=== PATIENT | female | born 2000 | race Two or more races ===

== ENCOUNTER 2022-11-25 11:53 | Observation (INO) | payer MEDICAID ==
[2022-11-25 13:11] LABS: Basophils # (auto) 0 10 ^3/uL (0-0.2); Basophils % (auto) 0.4 % (0.0-2.0); Eosinophils # (auto) 0.1 10 ^3/uL (0-0.8); Hematocrit 34.9 % (36.0-46.0); Hemoglobin 11.7 g/dL (12.2-16.2); Lymphocytes # (auto) 1.5 10 ^3/uL (0.4-5.4); Lymphocytes % (auto) 19.5 % (10.0-50.0); Mean Corpuscular Hemoglobin 29.5 pg (28.0-32.0); Mean Corpuscular Hgb Conc. 33.6 g/dL (32.0-36.0); Mean Corpuscular Volume 87.9 fL (80.0-100.0); Monocytes # (auto) 0.4 10 ^3/uL (0-1.3); Monocytes % (auto) 4.9 % (0.0-12.0); Neutrophils # (auto) 5.7 10 ^3/uL (1.6-8.6); Neutrophils % (auto) 74.2 % (37.0-80.0); Nucleated Red Blood Cells % 0.1 %; Red Blood Cells 3.98 10^6/uL (4.0-5.20); Red Cell Distribution Width 13.7 % (11.8-14.3); White Blood Cell 7.7 10^3/uL (4.4-10.8)
[2022-11-25 13:29] LABS: Protein, Urine 42.9 mg/dL (0.0-11.9)
[2022-11-25 13:29] LABS: Albumin 2.5 g/dL (3.4-5.0); Calcium 8.4 mg/dL (8.5-10.1); Potassium 3.5 mmol/L (3.5-5.1)
[2022-11-25 13:32] LABS: INR 0.97 (0.9-1.15); Partial Thromboplastin Time 24.6 sec (24.6-33.4)
[2022-11-25 13:34] LABS: Bilirubin, Total 0.2 mg/dL (0.2-1.0); Total Protein 6.3 g/dL (6.4-8.2); Uric Acid 3.5 mg/dL (2.6-6.0)
[2022-11-25] MEDS ORDERED: PREN-96 PO (13:53)
[2022-11-25 14:46] LABS: Urine Bacteria NONE SEEN /hpf (None Seen); Urine Blood Negative /uL (Negative); Urine Hyaline Cast FEW /lpf (0 - 2); Urine Mucus FEW (None Seen); Urine Specific Gravity 1.024 (1.001-1.035); Urine WBC 4 /hpf (0 - 5)
== END 2022-11-25 14:05 | disposition home or self-care (01) ==
LOC: UNDOADMOB 11:53 → LDRP 11:53 → UNDODISOB 14:05
PROVIDERS: ADMIT Obstetrics & Gynecology; ATTEND Obstetrics & Gynecology
DX: O13.3 Gestational [pregnancy-induced] hypertension without significant proteinuria, third trimester (principal); O62.9 Abnormality of forces of labor, unspecified; O26.893 Other specified pregnancy related conditions, third trimester; R51.9 Headache, unspecified; Z3A.34 34 weeks gestation of pregnancy
CPT/HCPCS: 36415; 59025; 80053; 81001; 81002; 82570; 84156; 84550; 85025; 85610; 85730; 94760; G0378

== ENCOUNTER 2022-12-04 08:10 | Observation (INO) | payer MEDICAID ==
[~2022-12-04 08:10] MED LIST: PREN-96 PO
== END 2022-12-04 10:33 | disposition home or self-care (01) ==
LOC: UNDOADMOB 08:10 → LDRP 08:10 → UNDODISOB 10:33
PROVIDERS: ADMIT Obstetrics & Gynecology; ATTEND Obstetrics & Gynecology
DX: O60.03 Preterm labor without delivery, third trimester (principal); O13.3 Gestational [pregnancy-induced] hypertension without significant proteinuria, third trimester; Z3A.36 36 weeks gestation of pregnancy
CPT/HCPCS: 59025; 81002; 94760; G0378

== ENCOUNTER 2022-12-07 14:34 | Observation (INO) | payer MEDICAID ==
[~2022-12-07] VITALS: Ht 154.9 cm; Wt 86.2 kg
[2022-12-07] MEDS ORDERED: LACTATED RINGER'S 1,000 ML IV ONE (15:30)
[2022-12-07] MEDS ORDERED: LACTATED RINGER'S 1,000 ML IV SCH (15:30)
[2022-12-07 16:05] LABS: Basophils # (auto) 0 10 ^3/uL (0-0.2); Basophils % (auto) 0.4 % (0.0-2.0); Eosinophils # (auto) 0.1 10 ^3/uL (0-0.8); Eosinophils % (auto) 0.7 % (0.0-7.0); Hematocrit 36.9 % (36.0-46.0); Hemoglobin 12.3 g/dL (12.2-16.2); Lymphocytes # (auto) 1.5 10 ^3/uL (0.4-5.4); Lymphocytes % (auto) 15.7 % (10.0-50.0); Mean Corpuscular Hemoglobin 28.4 pg (28.0-32.0); Mean Corpuscular Hgb Conc. 33.3 g/dL (32.0-36.0); Mean Corpuscular Volume 85.4 fL (80.0-100.0); Monocytes # (auto) 0.6 10 ^3/uL (0-1.3); Monocytes % (auto) 6.6 % (0.0-12.0); Neutrophils # (auto) 7.3 10 ^3/uL (1.6-8.6); Neutrophils % (auto) 76.6 % (37.0-80.0); Red Blood Cells 4.32 10^6/uL (4.0-5.20); White Blood Cell 9.5 10^3/uL (4.4-10.8)
[2022-12-07 16:14] LABS: Urine Bacteria MOD /hpf (None Seen); Urine Blood Negative /uL (Negative); Urine Budding Yeast OCCASIONAL /hpf (None Seen); Urine Mucus FEW (None Seen); Urine Specific Gravity 1.013 (1.001-1.035); Urine WBC 5 /hpf (0 - 5)
[2022-12-07] MEDS: TERBUTALINE SULFATE 1 MG/ML 1ML VIAL SC SCH ×3 (16:18→17:11)
[2022-12-07 16:21] LABS: Albumin 2.5 g/dL (3.4-5.0); Calcium 8.6 mg/dL (8.5-10.1); Potassium 4.1 mmol/L (3.5-5.1)
[2022-12-07 16:23] LABS: Protein, Urine 42.7 mg/dL (0.0-11.9)
[2022-12-07 16:27] LABS: BUN/Creatinine Ratio 18.9; Bilirubin, Total 0.3 mg/dL (0.2-1.0); Total Protein 6.7 g/dL (6.4-8.2); Uric Acid 4.3 mg/dL (2.6-6.0)
[2022-12-07 16:32] LABS: INR 0.91 (0.9-1.15); Partial Thromboplastin Time 24.6 sec (24.6-33.4)
[2022-12-07] MEDS ORDERED: NIFEdipine 10 MG CAP PO ONE (17:15)
[2022-12-07] MEDS ORDERED: NIFE1TAB31 PO ×2 (18:55→18:56)
== END 2022-12-07 19:29 | disposition home or self-care (01) ==
LOC: LDRP 14:34
PROVIDERS: ADMIT Obstetrics & Gynecology; ATTEND Obstetrics & Gynecology
DX: O60.03 Preterm labor without delivery, third trimester (principal); Z20.822 Contact with and (suspected) exposure to COVID-19; O62.9 Abnormality of forces of labor, unspecified; O26.893 Other specified pregnancy related conditions, third trimester; N89.8 Other specified noninflammatory disorders of vagina; O13.3 Gestational [pregnancy-induced] hypertension without significant proteinuria, third trimester; Z3A.36 36 weeks gestation of pregnancy; Z79.899 Other long term (current) drug therapy; Z98.890 Other specified postprocedural states; Z98.891 History of uterine scar from previous surgery
CPT/HCPCS: 36415; 59025; 80053; 81001; 81002; 82570; 84156; 84550; 85025; 85610; 85730; 87426; 96360; 96361; 96372; G0378; J3105

== ENCOUNTER 2022-12-09 08:00 | Observation (INO) | payer MEDICAID ==
[~2022-12-09] VITALS: Ht 154.9 cm; Wt 86.2 kg
[~2022-12-09 08:00] MED LIST changes: +NIFE1TAB31 PO
[2022-12-09 09:25] LABS: Urine Bacteria FEW /hpf (None Seen); Urine Blood Negative /uL (Negative); Urine Specific Gravity 1.018 (1.001-1.035); Urine WBC 3 /hpf (0 - 5)
[2022-12-09 09:37] LABS: Protein, Urine 39.7 mg/dL (0.0-11.9)
[2022-12-09 10:28] LABS: Protein, Urine 19.6 mg/dL (0.0-11.9)
[2022-12-09 11:13] LABS: 24 Hr. Total Protein, Urine 333.2 mg/24 Hr (<149.1)
== END 2022-12-09 11:54 | disposition home or self-care (01) ==
LOC: LDRP 08:00
PROVIDERS: ADMIT Obstetrics & Gynecology; ATTEND Obstetrics & Gynecology
DX: O13.3 Gestational [pregnancy-induced] hypertension without significant proteinuria, third trimester (principal); O62.9 Abnormality of forces of labor, unspecified; O26.893 Other specified pregnancy related conditions, third trimester; R51.9 Headache, unspecified; O99.891 Other specified diseases and conditions complicating pregnancy; M79.604 Pain in right leg; O12.03 Gestational edema, third trimester; Z3A.37 37 weeks gestation of pregnancy
CPT/HCPCS: 36415; 59025; 81001; 81002; 82570; 84156; 84550; G0378

== ENCOUNTER 2022-12-11 13:33 | Observation (INO) | payer MEDICAID | END 2022-12-12 10:46 | disposition home or self-care (01) | LOC: UNDOADMOB 12-12 08:41 → LDRP 12-12 08:41 | PROVIDERS: ADMIT Obstetrics & Gynecology; ATTEND Obstetrics & Gynecology | DX: O13.3 Gestational [pregnancy-induced] hypertension without significant proteinuria, third trimester (principal); O62.9 Abnormality of forces of labor, unspecified; Z3A.37 37 weeks gestation of pregnancy | CPT/HCPCS: 59025; 81002; G0378 ==

== ENCOUNTER 2022-12-14 04:35 | Inpatient (IN) | payer MEDICAID ==
[2022-12-13 08:06] LABS: Urine Bacteria MANY /hpf (None Seen); Urine Blood Negative /uL (Negative); Urine Mucus FEW (None Seen); Urine Specific Gravity 1.021 (1.001-1.035); Urine WBC 6 /hpf (0 - 5)
[2022-12-13 08:11] LABS: Basophils # (auto) 0 10 ^3/uL (0-0.2); Basophils % (auto) 0.3 % (0.0-2.0); Eosinophils # (auto) 0.1 10 ^3/uL (0-0.8); Hematocrit 33.5 % (36.0-46.0); Hemoglobin 11.1 g/dL (12.2-16.2); Lymphocytes # (auto) 1.6 10 ^3/uL (0.4-5.4); Lymphocytes % (auto) 21.3 % (10.0-50.0); Mean Corpuscular Hemoglobin 28.6 pg (28.0-32.0); Mean Corpuscular Hgb Conc. 33.2 g/dL (32.0-36.0); Mean Corpuscular Volume 86.1 fL (80.0-100.0); Monocytes # (auto) 0.5 10 ^3/uL (0-1.3); Monocytes % (auto) 7.1 % (0.0-12.0); Neutrophils # (auto) 5.1 10 ^3/uL (1.6-8.6); Neutrophils % (auto) 69.3 % (37.0-80.0); Red Blood Cells 3.89 10^6/uL (4.0-5.20); White Blood Cell 7.4 10^3/uL (4.4-10.8)
[2022-12-13 08:13] LABS: INR 0.9 (0.9-1.15); Partial Thromboplastin Time 26.1 sec (24.6-33.4)
[2022-12-13 08:35] LABS: Albumin 2.5 g/dL (3.4-5.0); Calcium 8.3 mg/dL (8.5-10.1)
[2022-12-13 08:37] LABS: BUN/Creatinine Ratio 22.2; Bilirubin, Total 0.2 mg/dL (0.2-1.0); Total Protein 6.3 g/dL (6.4-8.2)
[2022-12-13 08:38] LABS: Alcohol, Urine < 3.0 mg/dL (0-10); Amphetamine Screen, Urine NEGATIVE (NEGATIVE); Barbiturate Scree,Urine NEGATIVE (NEGATIVE); Benzodiazephine Screen, Urine NEGATIVE (NEGATIVE); Cannabinoid Screen, Urine NEGATIVE (NEGATIVE); Cocaine Screen, Urine NEGATIVE (NEGATIVE); Opiate Scree,Urine NEGATIVE (NEGATIVE); Phencyclidine Screen, Urine NEGATIVE (NEGATIVE)
[2022-12-14] VITALS (19 sets, daily range): BP systolic 104–132; BP diastolic 62–85
[~2022-12-14] VITALS: Ht 154.9 cm; Wt 89.8 kg
[2022-12-14] MEDS ORDERED: LACTATED RINGER'S 1,000 ML IV ONE (04:45)
[2022-12-14] MEDS ORDERED: ceFAZolin 1GM/50ML 50 ML IV ONE (04:45)
[2022-12-14 05:07] LABS: RPR Non Reactive (Non Reactive)
[2022-12-14] MEDS: LACTATED RINGER'S 1,000 ML IV SCH ×2 (05:37→14:05)
[2022-12-14] MEDS ORDERED: MORPHINE SULF PF 5 MG/10 ML VIAL ONE (06:39)
[2022-12-14] MEDS ORDERED: fentaNYL CITRATE 100 MCG/2 ML VL ONE (06:39)
[2022-12-14] MEDS ORDERED: ONDANSETRON HCL 4 MG/2 ML VIAL ONE (06:40)
[2022-12-14] MEDS ORDERED: DexAMETHasone SOD PHOS 10MG/1ML VIAL INJ ONE (06:40)
[2022-12-14] MEDS ORDERED: oxyTOCIN 10 UNIT/ML 10ML VIAL ONE (06:40)
[2022-12-14] MEDS ORDERED: CARBOPROST TROMETHAMINE 250 MCG/1ML VIAL IM ONE (07:50)
[2022-12-14] MEDS ORDERED: IBUP800T27 PO (08:07)
[2022-12-14] MEDS ORDERED: DOCU-94 PO (08:07)
[2022-12-14] MEDS ORDERED: HYDR-4902 PO (08:07)
[2022-12-14] MEDS ORDERED: ceFAZolin 1GM/50ML 50 ML IV SCH (08:15)
[2022-12-14] MEDS ORDERED: LACT. RINGERS/OXYTOCIN 20UNITS 1,000 ML IV ONE (08:15)
[2022-12-14] MEDS ORDERED: GUM (CHEWING) 1 GUM CHEW CHEW ONE (08:15)
[2022-12-14] MEDS ORDERED: ONDANSETRON HCL 4 MG/2 ML VIAL IV PRN ×2 (08:15→10:00)
[2022-12-14] MEDS ORDERED: NALBUPHINE HCL 10 MG/1ml INJECTION IV ONE (10:00)
[2022-12-14] MEDS ORDERED: NALOXONE HCL 0.4 MG/ML VIAL IV PRN (10:00)
[2022-12-14] MEDS ORDERED: HYDROmorphone HCL 2 MG/ML VL/or syr IV PRN (10:00)
[2022-12-14] MEDS ORDERED: diphenhdrAMINE HCL 50 MG/1 ML VL IV PRN (10:00)
[2022-12-14] MEDS: ACETAMINOPHEN IV 1000 MG/100ML (10MG/ML) IV PRN ×2 (13:03→20:53)
[2022-12-14] MEDS: ceFAZolin 1GM/50ML 50 ML IV SCH ×2 (15:21→23:52)
[2022-12-14 22:44] LABS: Basophils # (auto) 0 10 ^3/uL (0-0.2); Basophils % (auto) 0.1 % (0.0-2.0); Eosinophils # (auto) 0 10 ^3/uL (0-0.8); Hematocrit 30.8 % (36.0-46.0); Hemoglobin 10.3 g/dL (12.2-16.2); Lymphocytes # (auto) 1.3 10 ^3/uL (0.4-5.4); Lymphocytes % (auto) 9.9 % (10.0-50.0); Mean Corpuscular Hemoglobin 28.5 pg (28.0-32.0); Mean Corpuscular Hgb Conc. 33.3 g/dL (32.0-36.0); Mean Corpuscular Volume 85.7 fL (80.0-100.0); Monocytes % (auto) 7.4 % (0.0-12.0); Neutrophils % (auto) 82.6 % (37.0-80.0); White Blood Cell 13.4 10^3/uL (4.4-10.8)
[2022-12-15] VITALS (13 sets, daily range): BP systolic 93–130; BP diastolic 53–86
[2022-12-15] MEDS: LACTATED RINGER'S 1,000 ML IV SCH (03:45)
[2022-12-15] MEDS: ACETAMINOPHEN IV 1000 MG/100ML (10MG/ML) IV PRN (04:58)
[2022-12-15] MEDS ORDERED: HYDROcodone-ACET 5/325MG TAB PO PRN (07:30)
[2022-12-15] MEDS: ceFAZolin 1GM/50ML 50 ML IV SCH (07:31)
[2022-12-15] MEDS: HYDROcodone-ACET 5/325MG TAB PO PRN ×3 (07:57→21:35)
[2022-12-15] MEDS: SIMETHICONE 80 MG CHEWABLE TABLET PO SCH ×3 (07:58→21:35)
[2022-12-15 08:14] LABS: Basophils # (auto) 0.1 10 ^3/uL (0-0.2); Basophils % (auto) 0.8 % (0.0-2.0); Eosinophils # (auto) 0 10 ^3/uL (0-0.8); Eosinophils % (auto) 0.3 % (0.0-7.0); Hematocrit 29.1 % (36.0-46.0); Hemoglobin 9.9 g/dL (12.2-16.2); Lymphocytes # (auto) 2.1 10 ^3/uL (0.4-5.4); Lymphocytes % (auto) 18.8 % (10.0-50.0); Mean Corpuscular Hemoglobin 28.9 pg (28.0-32.0); Mean Corpuscular Volume 85.1 fL (80.0-100.0); Monocytes # (auto) 0.9 10 ^3/uL (0-1.3); Monocytes % (auto) 8.2 % (0.0-12.0); Neutrophils # (auto) 7.9 10 ^3/uL (1.6-8.6); Neutrophils % (auto) 71.9 % (37.0-80.0); Red Blood Cells 3.42 10^6/uL (4.0-5.20); Red Cell Distribution Width 14.1 % (11.8-14.3)
[2022-12-15] MEDS: IBUPROFEN 800 MG TAB PO PRN ×2 (11:56→23:20)
[2022-12-15] MEDS: DOCUSATE SOD 100 MG CAP PO SCH ×2 (11:56→21:35)
[2022-12-16 03:00] VITALS: BP 93/55
[2022-12-16] MEDS: HYDROcodone-ACET 5/325MG TAB PO PRN ×2 (05:23→16:41)
[2022-12-16] MEDS: SIMETHICONE 80 MG CHEWABLE TABLET PO SCH ×2 (05:23→12:00)
[2022-12-16 07:08] VITALS: BP 97/55
[2022-12-16] MEDS: DOCUSATE SOD 100 MG CAP PO SCH (10:00)
[2022-12-16 11:20] VITALS: BP 99/59
[2022-12-16 15:30] VITALS: BP 95/63
[2022-12-16] MEDS: IBUPROFEN 800 MG TAB PO PRN (16:40)
== END 2022-12-16 19:45 | disposition home or self-care (01) | DRG 540 ==
LOC: LDRP 04:35
PROVIDERS: ADMIT Obstetrics & Gynecology; ATTEND Obstetrics & Gynecology
PROC: 10D00Z1 Extraction of Products of Conception, Low, Open Approach (ICD-10-PCS; principal; 2022-12-14 07:16)
DX: O34.211 Maternal care for low transverse scar from previous cesarean delivery (principal); O13.4 Gestational [pregnancy-induced] hypertension without significant proteinuria, complicating childbirth; Z20.822 Contact with and (suspected) exposure to COVID-19; Z37.0 Single live birth; Z3A.37 37 weeks gestation of pregnancy
CPT/HCPCS: 36415; 59025; 80053; 80307; 81001; 81002; 85025; 85610; 85730; 86592; 86850; 86900; 86901; 94760; 94762; 96360; 96361; 96365; G0378; J0131; J0690; J1100; J2405; J2590